=== PATIENT | female | born 1990 | race Caucasian/White ===

== ENCOUNTER 2020-06-22 21:54 | Emergency (ER) | payer BC, MEDICAID ==
[~2020-06-22] VITALS: Ht 160 cm; Wt 65.9 kg
[2020-06-22 22:07] VITALS: BP 113/63; PULSE 85; TEMP 98.8
== END 2020-06-22 22:17 | disposition left against medical advice (07) ==
LOC: COL.ER 21:54
DX: O20.9 Hemorrhage in early pregnancy, unspecified (principal); Z3A.12 12 weeks gestation of pregnancy; Z53.29 Procedure and treatment not carried out because of patient's decision for other reasons; Z88.0 Allergy status to penicillin; Z88.1 Allergy status to other antibiotic agents; Z88.5 Allergy status to narcotic agent

== ENCOUNTER 2022-08-28 14:35 | Inpatient (IN) | payer MEDICAID ==
[~2022-08-28] VITALS: Ht 160 cm; Wt 59.2 kg
[2022-08-28] VITALS (460 sets, daily range): BP systolic 115–132; BP diastolic 53–69; PULSE 93–103; TEMP 98–98.7; O2SAT 84–100
[2022-08-28] MEDS ORDERED: CELEXA40 MG PO (16:29)
[2022-08-28] MEDS ORDERED: WELLBUTRIN XL150 MG PO (16:29)
[2022-08-28] MEDS ORDERED: LANTUS100 U/ML SQ ×2 (16:30)
[2022-08-28] MEDS ORDERED: HUMALOG100 U/ML SQ (16:31)
[2022-08-28 16:48] LABS: BASO # 0.1 K/mm3 (0.0-0.2); BASO % 0.5 % (0.0-2.0); EOS % 0.1 % (0.0-4.0); GRAN # 10.1 K/mm3 (1.4-6.5); GRAN % 82.7 % (42.2-75.2); HEMOGLOBIN 14.6 g/dl (12.5-16.0); LYMPH # 1.5 K/mm3 (1.2-3.4); LYMPH % 11.9 % (20.0-51.0); MEAN CELL VOLUME 95 fl (80.0-100.0); MEAN CORPUSCULAR HEMOGLOBIN 32 pg (27-31); MEAN CORPUSCULAR HGB CONC 33 g/dl (33.0-37.0); MEAN PLATELET VOLUME 9.9 fl (7.4-10.4); MONO # 0.5 K/mm3 (0.1-0.6); MONO % 4.1 % (1.7-9.3); PLATELET COUNT 376 K/mm3 (130-400); RED BLOOD COUNT 4.61 M/mm3 (4.10-5.30); REDCELL DISTRIBUTION WIDTH-CV 12.2 % (11.5-14.5)
[2022-08-28 16:58] LABS: ALBUMIN 4.4 gm/dL (3.5-5.0); BILIRUBIN,TOTAL 0.5 mg/dL (0.2-1.2); CALCIUM 8.4 mg/dL (8.4-10.2); CREATININE, serum 1.17 mg/dL (0.57-1.11); MAGNESIUM 1.7 mg/dL (1.6-2.6); POTASSIUM 5.4 mmol/L (3.5-4.5); TOTAL PROTEIN 7.7 gm/dL (6.2-8.1)
[2022-08-28 18:40] LABS: CALCIUM 7.1 mg/dL (8.4-10.2); CREATININE, serum 0.94 mg/dL (0.57-1.11); POTASSIUM 4.7 mmol/L (3.5-4.5)
--- NOTE | 2022-08-28 18:48 | NUR ---
PT ARRIVED VIA EMS FROM [facility] AT 1600. PT IS ORIENTED X4, ANSWERS ALL QUESTIONS APPROPRIATELY, BUT IS DROWSY. VSS ON ROOM AIR. INSULIN DRIP AND FLUIDS STARTED ORDERED. 20G IV'S IN PLACE TO BILATERAL AC'S UPON ADMISSION. PT GIVEN PRN PHENERGAN FOR NAUSEA. INSULIN DRIP RATE CHANGED TO 1 UNIT/HR PER TORB FROM DR JIM. ACCUCHECKS WILL BE DONE HOURLY. PT INSTRUCTED TO USE CALL LIGHT FOR NEEDS. PT'S MOTHER AT BEDSIDE.
--- NOTE | 2022-08-28 20:00 | NUR ---
SHIFT REPORT RECEIVED.PT SLEEPING IN BED WITH MOM AT BEDSIDE. PT AWAKENS EASILY AND IS A&O x4 BUT IS DROWSY. PT ON ROOM AIR WITH CLEAR LUNG SOUNDS THROUGH OUT. PT IS ON INSULIN DRIP AND IVF WITH Q1HR ACU CHECKS. PT WITH NAUSEA AND VOMITING THAT IS CONTROLLED THROUGH MEDS GIVEN PER EMAR. PT HAS MODERATE SCATTERED GENERALIZED SCABS ON BUE AND MILD SCATTERED GENERALIZED SCABING ON BLE. PT IS ABLE TO USE CALL LIGHT WITH IT AT BEDSIDE AND BED ALARMS ARE ON.
[2022-08-28 20:36] LABS: CALCIUM 7.6 mg/dL (8.4-10.2); CREATININE, serum 1.01 mg/dL (0.57-1.11); POTASSIUM 5.2 mmol/L (3.5-4.5)
[2022-08-28 21:09] LABS: COLLECTION METHOD CLEAN CATCH
[2022-08-28 21:19] LABS: MUCOUS Present (NOT PRESENT); SQUAMOUS EPITHELIAL 0-2 /hpf (0-10); URINE BACTERIA None Seen /hpf (NONE SEEN); URINE RBC 0-2 /hpf (0-2); URINE WBC 0-2 /hpf (0-2)
[2022-08-28 21:20] LABS: URINE APPEARANCE Clear (CLEAR/HAZY); URINE COLOR Yellow (YELLOW); URINE GLUCOSE 1+ (NEGATIVE); URINE KETONE 4+ (NEGATIVE); URINE NITRATE Negative (NEGATIVE); URINE PROTEIN(semi-quant) 1+ (NEGATIVE); URINE UROBILINOGEN 0.2 E.U/dL (0.2-1.0)
[2022-08-28 21:21] LABS: URINE BLOOD 1+ (NEGATIVE)
[2022-08-28 21:26] LABS: TRICYCLIC ANTIDEPRESS URINE NEGATIVE
--- NOTE | 2022-08-28 22:30 | NUR ---
ON ADMISSION PT REPORTED THAT SHE USES MARIJUANA. PT'S URINE DRUG SCREEN CAME BACK POSITIVE FOR OPIATES, COCAINE AND CANNABIS. PT REPORTS THAT SHE USED TO PURCHASE HER MARIJUANA FROM A DISPENSARY IN [place], BUT DUE TO THE TRAVEL DISTANCE SHE HAS BEEN GETING FROM A LOCAL INDIVIDUAL. PT DENIES USING OPIATES OR COCAINE AND FEELS THIS MUST BE FROM PURCHASING MARIJUANA FROM A NON-DISPENSARY SOURCE. PT'S MOM AND BOTH HAVE HIPPA PRIVILAGES, BUT REQUESTS THAT THIS INFORMATION BE WITHHELD FROM ALL PARTIES.
[2022-08-28 22:42] LABS: CALCIUM 7.4 mg/dL (8.4-10.2); CREATININE, serum 1.12 mg/dL (0.57-1.11); POTASSIUM 4.7 mmol/L (3.5-4.5)
[2022-08-29] VITALS (706 sets, daily range): BP systolic 100–118; BP diastolic 59–77; PULSE 68–95; TEMP 98–98.9; O2SAT 94–100
[2022-08-29 00:48] LABS: CALCIUM 7.5 mg/dL (8.4-10.2); CREATININE, serum 1.03 mg/dL (0.57-1.11); POTASSIUM 4.1 mmol/L (3.5-4.5)
[2022-08-29 02:45] LABS: CALCIUM 7.6 mg/dL (8.4-10.2); CREATININE, serum 1.01 mg/dL (0.57-1.11); POTASSIUM 3.8 mmol/L (3.5-4.5)
[2022-08-29 06:26] LABS: BASO # 0.1 K/mm3 (0.0-0.2); BASO % 0.5 % (0.0-2.0); EOS # 0.1 K/mm3 (0.0-0.7); EOS % 0.7 % (0.0-4.0); GRAN # 5.8 K/mm3 (1.4-6.5); GRAN % 55.7 % (42.2-75.2); HEMOGLOBIN 12.9 g/dl (12.5-16.0); LYMPH # 3.4 K/mm3 (1.2-3.4); LYMPH % 33.2 % (20.0-51.0); MEAN CELL VOLUME 91 fl (80.0-100.0); MEAN CORPUSCULAR HEMOGLOBIN 32 pg (27-31); MEAN CORPUSCULAR HGB CONC 35 g/dl (33.0-37.0); MEAN PLATELET VOLUME 9.6 fl (7.4-10.4); MONO % 9.5 % (1.7-9.3); PLATELET COUNT 325 K/mm3 (130-400); RED BLOOD COUNT 4.02 M/mm3 (4.10-5.30); REDCELL DISTRIBUTION WIDTH-CV 12.1 % (11.5-14.5)
[2022-08-29 06:31] LABS: HEMATOCRIT 36.7 % (37.0-47.0)
[2022-08-29 06:51] LABS: CALCIUM 7.5 mg/dL (8.4-10.2); CREATININE, serum 0.86 mg/dL (0.57-1.11); MAGNESIUM 1.6 mg/dL (1.6-2.6); POTASSIUM 3.5 mmol/L (3.5-4.5)
--- NOTE | 2022-08-29 08:08 | NUR ---
BEDSIDE REPORT RECEIVED FROM MAYRA GALVIN. PT RESTING IN BED, VSS. FLUIDS AND INSULIN DRIP INFUSING ORDERED TO PERIPHERAL IV IN L AC. PT DENIES NEEDS AT THIST TIME, CALL LIGHT IN REACH.
[2022-08-29 12:29] LABS: CALCIUM 7.8 mg/dL (8.4-10.2); CREATININE, serum 0.81 mg/dL (0.57-1.11); POTASSIUM 3.5 mmol/L (3.5-4.5)
--- NOTE | 2022-08-29 13:06 | NUR ---
PT STABLE THROUGHOUT MORNING, DENIED ANY PAIN, N/V. INSULIN DRIP TITRATED PER ORDER SET AND DISCONTINUED ORDERED AT 1045. PT ABLE TO TOLERATE FOOD AND PO FLUIDS. LEVEMIR GIVEN ORDERED. PT TRANSFERED TO ROOM 347 VIA AT 1230. REPORT GIVEN TO MAYRA TRACY. PT'S MOTHER COLLECTED ALL PT BELONGINGS AND CARRIED TO NEW ROOM.
[2022-08-29 13:40] LABS: CALCIUM 7.7 mg/dL (8.4-10.2); CREATININE, serum 0.81 mg/dL (0.57-1.11); POTASSIUM 3.4 mmol/L (3.5-4.5)
--- NOTE | 2022-08-29 14:35 | NUR ---
SW met with patient to complete intake. Patients mother Chelsey ([phone]) present at bedside. Patient reports that she lives at home with her Burak ([phone]) and 3 children (12,7 &2) at home in [place]. Her is caring for the children while she is here. Patient is fully independent with her ADL's and IADL's. She has no home oxygen needs and no DME needs at home to assist with mobility. Patient does not have a PCP at this time and she utilizes [facility] in [place] for prescriptions. Patient verbalizes that she does not have a DPOA-HC established and does not wish to create one at this time. BRENDA unable to address patients toxicology screen due to request of not speaking about it in front of family.
--- NOTE | 2022-08-29 14:58 | NUR ---
PATIENT ALERT AND ORIENTED X4. VSS. PATIENT HERE FOR DKA. PATIENT BROUGHT TO FLOOR AT APPROXIMATELY 1330. PATIENT DENIES ANY PAIN. BLOOD SUGAR PRIOR TO TRANSFER FROM ICU WAS 90. BLOOD SUGAR REPEATED WAS 127. IV TO LEFT AC WITH FLUIDS RUNNING AT 150ML/HOUR. PATIENT TOLERATING FLUIDS AND FOOD. PATIENT RESTING IN BED WITH CALL LIGHT NEAR.
[2022-08-29 18:23] LABS: CALCIUM 8.3 mg/dL (8.4-10.2); CREATININE, serum 0.79 mg/dL (0.57-1.11); POTASSIUM 3.2 mmol/L (3.5-4.5)
[2022-08-29 22:55] LABS: CALCIUM 7.9 mg/dL (8.4-10.2); CREATININE, serum 0.81 mg/dL (0.57-1.11); POTASSIUM 3.4 mmol/L (3.5-4.5)
--- NOTE | 2022-08-30 00:38 | NUR ---
pt requested blood sugar check, "feels low", BGM 36, pt given 25ml D50 slow IVP per protocol, pt also requested apple juice, PB and crackers. Lisa RUBIO, notified per phone. repeat BGM up to 169.
[2022-08-30 04:00] VITALS: BP 108/70; PULSE 77; TEMP 98.8
--- NOTE | 2022-08-30 06:31 | NUR ---
pt had low BGM of 36 during the noc, up after tx to 169. IVF infusing per PIV @ 150cc/hr, up to restroom ad nazia. potassium replaced during the noc after K+ drawn @ 2200 of 3.4. repeated this am.
[2022-08-30 07:17] LABS: BASO # 0.1 K/mm3 (0.0-0.2); BASO % 0.6 % (0.0-2.0); EOS # 0.1 K/mm3 (0.0-0.7); EOS % 1.1 % (0.0-4.0); GRAN # 3.4 K/mm3 (1.4-6.5); GRAN % 41.8 % (42.2-75.2); HEMOGLOBIN 12.9 g/dl (12.5-16.0); LYMPH # 3.9 K/mm3 (1.2-3.4); LYMPH % 47.2 % (20.0-51.0); MEAN CELL VOLUME 91 fl (80.0-100.0); MEAN CORPUSCULAR HEMOGLOBIN 32 pg (27-31); MEAN CORPUSCULAR HGB CONC 35 g/dl (33.0-37.0); MONO # 0.8 K/mm3 (0.1-0.6); MONO % 9.2 % (1.7-9.3); PLATELET COUNT 347 K/mm3 (130-400); RED BLOOD COUNT 4.06 M/mm3 (4.10-5.30); REDCELL DISTRIBUTION WIDTH-CV 12.2 % (11.5-14.5)
[2022-08-30 07:21] LABS: HEMATOCRIT 36.8 % (37.0-47.0)
[2022-08-30 07:35] LABS: CALCIUM 8.3 mg/dL (8.4-10.2); CREATININE, serum 0.68 mg/dL (0.57-1.11); MAGNESIUM 1.7 mg/dL (1.6-2.6); POTASSIUM 3.8 mmol/L (3.5-4.5)
[2022-08-30 08:20] VITALS: BP 107/68; PULSE 71; TEMP 98.2
--- NOTE | 2022-08-30 08:44 | NUR ---
PT STATES THAT SHE IS FEELING BETTER AND READY TO GO HOME/
--- NOTE | 2022-08-30 08:50 | NUR ---
Assessment complete. Patient alert and oriented, eating breakfast. Breath sounds clear, no shortness of breath. Heart rate regular. Peripheral line to left antecubital with potassium chloride infusing at 150ml/hr, no reddness or infiltration. No c/o of pain just discomfort from IV.
--- NOTE | 2022-08-30 09:35 | NUR ---
Initial visit; Patient very sweet and happily getting prepared to be discharged. She thanked Rubber Turner for stopping and would welcome prayers for healing.
[2022-08-30] MEDS ORDERED: GLUCOSE TEST ST1 DEV MC (10:33)
[2022-08-30] MEDS ORDERED: [UNRECOGNIZED DRUG - SUPPLY] TD (10:33)
[2022-08-30 10:50] VITALS: BP 134/74; PULSE 64; TEMP 98
--- NOTE | 2022-08-30 11:54 | NUR ---
PT AMBULATED FROM UNIT WITH THIS NURSE TO PT EXIT WHERE SHE WAS MET BY HER FOR PICKUP. ALL EDUCATION GIVEN, ALL QUESTIONS ANSWERED, IV REMOVED, ALL PAPERS SIGNED AND DISCHARGE PACKET GIVEN.
--- NOTE | 2022-08-30 12:03 | NUR ---
PT LEFT DISCHARGE PACKET AT THE HOSPITAL. PT WAS CALLED AND MADE AWARE. 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
== END 2022-08-30 11:20 | disposition home or self-care (01) | DRG 638 ==
LOC: IMCU 14:35 → ICU 16:00 → SURG 08-29 14:20
PROVIDERS: ADMIT Internal Medicine
DX: E10.10 Type 1 diabetes mellitus with ketoacidosis without coma (principal); N17.9 Acute kidney failure, unspecified; Z20.822 Contact with and (suspected) exposure to COVID-19; Z79.4 Long term (current) use of insulin; Z88.1 Allergy status to other antibiotic agents; Z88.5 Allergy status to narcotic agent; Z88.0 Allergy status to penicillin; Z72.0 Tobacco use
CPT/HCPCS: J1815; J2550; J3480; J7030

== ENCOUNTER 2022-10-15 18:36 | Emergency (ER) | payer MEDICAID ==
[~2022-10-15] VITALS: Ht 160 cm; Wt 55.9 kg
[~2022-10-15 18:36] MED LIST: CELEXA40 MG PO; GLUCOSE TEST ST1 DEV MC; HUMALOG100 U/ML SQ; LANTUS100 U/ML SQ; WELLBUTRIN XL150 MG PO; [UNRECOGNIZED DRUG - SUPPLY] TD
[2022-10-15 18:38] VITALS: TEMP 98.5
[2022-10-15 18:55] LABS: BASO % 0.6 % (0.0-2.0); EOS # 0.1 K/mm3 (0.0-0.7); EOS % 0.8 % (0.0-4.0); GRAN # 5.4 K/mm3 (1.4-6.5); GRAN % 85.5 % (42.2-75.2); HEMATOCRIT 41.8 % (37.0-47.0); HEMOGLOBIN 14.5 g/dl (12.5-16.0); LYMPH # 0.5 K/mm3 (1.2-3.4); LYMPH % 8.2 % (20.0-51.0); MEAN CELL VOLUME 92 fl (80.0-100.0); MEAN CORPUSCULAR HEMOGLOBIN 32 pg (27-31); MEAN CORPUSCULAR HGB CONC 35 g/dl (33.0-37.0); MEAN PLATELET VOLUME 10.3 fl (7.4-10.4); MONO # 0.3 K/mm3 (0.1-0.6); MONO % 4.6 % (1.7-9.3); PLATELET COUNT 313 K/mm3 (130-400); RED BLOOD COUNT 4.55 M/mm3 (4.10-5.30); REDCELL DISTRIBUTION WIDTH-CV 11.8 % (11.5-14.5)
[2022-10-15 19:40] LABS: ALANINE AMINOTRANSFERASE 13 U/L (0-55); ALBUMIN 3.6 gm/dL (3.5-5.0); ALKALINE PHOSPHATASE 86 U/L (40-150); ANION GAP 14 mmol/L (7-16); AST,SGOT 12 U/L (5-34); BILIRUBIN,TOTAL 0.7 mg/dL (0.2-1.2); BLOOD UREA NITROGEN 8 mg/dL (7-19); CALCIUM 8.5 mg/dL (8.4-10.2); CARBON DIOXIDE 20 mmol/L (22-29); CHLORIDE 104 mmol/L (98-107); CREATININE, serum 0.75 mg/dL (0.57-1.11); GLUCOSE 177 mg/dL (70-99); LIPASE 6 U/L (8-78); POTASSIUM 3.4 mmol/L (3.5-4.5); SODIUM 138 mmol/L (136-145); TOTAL PROTEIN 6.6 gm/dL (6.2-8.1)
[2022-10-15 19:44] LABS: ACETONE,SERUM NEGATIVE
[2022-10-15 20:06] LABS: COLLECTION METHOD CLEAN CATCH
[2022-10-15 20:13] LABS: PH 8.5 (5.0-8.5); URINE APPEARANCE Clear (CLEAR/HAZY); URINE BLOOD Negative (NEGATIVE); URINE COLOR Yellow (YELLOW); URINE GLUCOSE TRACE (NEGATIVE); URINE KETONE 4+ (NEGATIVE); URINE NITRATE Negative (NEGATIVE); URINE PROTEIN(semi-quant) 2+ (NEGATIVE); URINE UROBILINOGEN 0.2 E.U/dL (0.2-1.0)
[2022-10-15 20:15] LABS: MUCOUS Present (NOT PRESENT); URINE BACTERIA None Seen /hpf (NONE SEEN)
[2022-10-15 20:18] LABS: TRICYCLIC ANTIDEPRESS URINE NEGATIVE
[2022-10-15 20:56] VITALS: BP 121/79; PULSE 99
== END 2022-10-15 20:58 | disposition home or self-care (01) ==
LOC: COL.ER 18:36
PROVIDERS: Personal Emergency Response Attendant; Physician Assistant
DX: R11.2 Nausea with vomiting, unspecified (principal); R10.11 Right upper quadrant pain; E10.9 Type 1 diabetes mellitus without complications; Z87.891 Personal history of nicotine dependence; Z28.310 Unvaccinated for COVID-19
CPT/HCPCS: J2405; J7030